=== PATIENT | female | born 1955 | race Caucasian/White ===

== ENCOUNTER → 2021-06-04 13:08 | Outpatient (CLI) | payer MEDICARE, OTHER, SELFPAY ==
--- NOTE | 2021-06-04 | DI.MRI.S_ITS ---
PROCEDURE: MR KNEE RT WO CON INDICATIONS: Loose body in knee, right knee TECHNIQUE: Noncontrast sagittal PD fast spin echo and T2 fast spin echo with fat saturation, sagittal 3-D FLASH with fat saturation; coronal T1 spin echo and PD fast spin echo with fat saturation, and axial PD fast spin echo with fat saturation through the knee. COMPARISON: None. FINDINGS: Image quality: Excellent. Menisci: Deficiency of the lateral meniscus, which may reflect intrasubstance degeneration. Normal morphology of the medial meniscus. The meniscal root ligaments appear intact. Cruciate ligaments: The anterior and posterior cruciate ligaments appear intact. Medial structures: The medial collateral ligament appears intact. Visualized portions of the pes anserinus tendons appear normal. Small amount of bursal fluid with intra-articular bodies, measuring up to 3 mm. T2 hyperintense signal within the medial gastrocnemius musculotendinous junction, compatible with injury/strain. Lateral structures: The lateral collateral ligament, long and short heads of the biceps femoris tendon appear intact. The popliteus tendon appears normal. Iliotibial band appears normal. Anterior structures: The quadriceps and patellar tendons appear intact. Patellar alignment is normal. No femoral trochlear dysplasia or ventral trochlear prominence. No edema in the infrapatellar fat pad. Bones and cartilage: T2 hyperintense signal in the lateral femoral condyle and tibial plateau, compatible with subchondral contusion. Signal heterogeneity and thinning of the tricompartment hyaline cartilage, most prominent in the lateral compartment. T2 hyperintense signal within the medial patella at the retinaculum attachment. Small focus of subchondral edema in the medial aspect of the patellar apex. Joint space: Small joint effusion with intra-articular bodies, measuring up to 1.4 cm. No Sargent's cyst. Normal appearing synovial plicae are incidentally noted. IMPRESSION: 1. Pes anserine bursal fluid with intra-articular body. 2. Small suprapatellar joint effusion with intra-articular bodies. 3. Osteochondral injury of the lateral compartment as detailed above. 4. Medial gastrocnemius strain/injury. Dictated by: Andres Niño M.D. on 06/04/2021 at 13:54 Approved by: Andres Niño M.D. on 06/04/2021 at 14:05
== END ==
PROVIDERS: Referring Provider Orthopaedic Surgery; Visit Provider Orthopaedic Surgery
DX: S76.811A Strain of other specified muscles, fascia and tendons at thigh level, right thigh, initial encounter (principal); M23.41 Loose body in knee, right knee; M25.461 Effusion, right knee
CPT/HCPCS: 73721

== ENCOUNTER 2023-01-18 13:47 | Day surgery (SDC) | payer MEDICARE, OTHER, SELFPAY ==
--- NOTE | 2023-01-18 | PATH_ITS ---
[facility] Accession Number: [id number] No. of containers..02 Tissue . 01 Material submitted: . PART A: duodenum - DUODENUM PART B: stomach - ANTRUM . 01 Diagnosis: A-DUODENUM, BIOPSY: - SMALL BOWEL MUCOSA WITH PRESERVED VILLOUS ARCHITECTURE, NEGATIVE FOR HISTOLOGIC EVIDENCE OF CELIAC DISEASE. - NEGATIVE FOR DYSPLASIA OR MALIGNANCY. --- B- STOMACH, ANTRUM, BIOPSY: - ANTRAL GASTRIC MUCOSA WITH MILD FOCAL CHRONIC GASTRITIS. - NO H. PYLORI LIKE ORGANISMS IDENTIFIED (ON THE H/E-STAINED SECTIONS). - NEGATIVE FOR INTESTINAL METAPLASIA, DYSPLASIA OR MALIGNANCY. TXN 01/21/2023 1548 Local . 01 Electronically signed: . Tawdavi Herrera MD, Pathologist NPI- [id number] . 01 Gross description: . Part A: DUODENUM: Received in formalin are 3 fragment(s) of de anda, soft tissue measuring 0.1 x 0.1 x 0.1 cm to 0.3 x 0.3 x 0.2 cm submitted entirely in 1 cassette(s) Part B: ANTRUM: Received in formalin is 1 fragment(s) of de anda, soft tissue measuring 0.3 x 0.3 x 0.2 cm submitted entirely in 1 cassette(s) /ANAND 01/19/2023 2332 Local . 01 Pathologist provided ICD-10: R63.4, R19.4 . 01 CPT . 735704, [id number] Specimen Comment: A courtesy copy of this report has been sent to [phone] Performed at: 01 [facility] [address] [place] [address] [address] [facility], [place], [place] [id number] MD Bijan Narayanan MD Phone: [phone]
[2023-01-18 14:04] VITALS: BP 116/76; PULSE 90; RESP 16; TEMP 36.2; O2SAT 100; BMI 26.2
--- NOTE | 2023-01-18 14:14 | PM.HP.1 ---
History of Present Illness History of Present Illness Date Patient Seen: 01/18/23 Time Patient Seen: 14:15 Chief complaint: EGD/Colonoscopy Narrative: I reviewed my recent office note from January 12. No significant changes. Review of Systems Review of Systems ROS: Yes All systems reviewed with the patient and are negative except as otherwise documented Exam Const General: cooperative [facility] Head: normal to inspection Eyes General: appearance normal, both eyes and all related structures Neck Neck: normal visual inspection Chest Chest: normal inspection of the chest Resp Effort & Inspection: normal respiratory effort Cardio Rate: regular rate GI Inspection: normal to inspection Skin General: no rashes or lesions noted Neuro General: patient alert and patient awake Extrem General: normal to inspection and no pedal edema Psych Appearance: grossly normal Assessment & Plan Assessment & Plan narrative: 67-year-old female with diminished appetite, weight loss, and change in bowel habit. Diagnostic EGD and colonoscopy are pursued today. There was no evidence of celiac disease. No evidence of a thyroid anomaly. CBC and CMP were unremarkable.
--- NOTE | 2023-01-18 14:16 | PM.PREOP ---
Pre-operative Note Interval Note History & Physical reviewed/Exam performed by Physician: Yes Changes to H&P: No ASA Class (for procedural sedation): II
[2023-01-18] MEDS: LACTATED RINGERS 1,000 ML 42 ML IV (14:24)
--- NOTE | 2023-01-18 14:59 | PM.OP.EC ---
Operative Date/Time/Diagnoses Date of procedure: 01/18/23 Time of procedure: 14:59 Pre-op diagnosis: Decreased appetite, weight loss, and change in bowel habits/caliber Post-op diagnosis: same Procedure & Clinicians Study performed: EGD with biopsies and colonoscopy Same procedure as scheduled: Yes Indications: Decreased appetite, weight loss, and change in bowel habits/caliber Surgeon: Jose Ramon Young Procedure Notes SCOAP/Timeout: Done Procedure in detail: After the risks and benefits were explained, written and verbal informed consent was obtained. The patient was brought into the procedure room and placed into the left lateral decubitus position. Please see anesthesia notes for sedation details. The scope was introduced into the mouth through the bite block and advanced under direct visualization to the 2nd portion of the duodenum. The scope was slowly withdrawn carefully examining the mucosa for any defects or lesions. Retroflexed views were accomplished in the stomach. The stomach was decompressed, the scope was then removed from the patient who tolerated the procedure well. The patient was then turned around. A digital rectal examination was accomplished. No significant pathology was appreciated. The scope was introduced into the rectum and advanced to the cecum as identified by the appendiceal orifice and ileocecal valve. The terminal ileum was interrogated. The scope was then slowly withdrawn to carefully examine the mucosa for any defects or lesions. Multiple direct views were made through the dentate line for exclusion of pathology. The colon was decompressed. The scope was then removed from the patient who tolerated the procedure well. Pediatric colonoscope Bowel prep adequate Scope withdrawal time: 7 minutes Sedation minutes: 23 Complications: none Impression: 1. Duodenum: No significant pathology was appreciated from the bulb through to the 2nd portion. Random D2 biopsies were taken for exclusion of celiac. 2. Stomach: No outlet obstruction. No masses. No ulcers. Retroflexed views of the LES were unremarkable. There was mild erythema and some scattered nodular erosions in the antrum. A couple of these areas were targeted for histopathology and exclusion of H pylori infection. 3. Esophagus: The squamocolumnar junction correlated with the top of the gastric folds. GEJ was at 36 cm from the incisors. No stricturing. No acute erosive esophagitis. No significant esophageal pathology throughout. 4. Terminal ileum: This was visually normal. 5. Colon: There was no evidence of any mass lesion throughout. No significant polyps identified throughout. The patient had scattered small diverticula throughout the left colon. Grade 1 nonthrombosed, nonbleeding, internal hemorrhoids were noted. Endoscopic diagnosis 1. Mild erosive gastropathy 2. Otherwise visually unremarkable EGD 3. Diverticulosis 4. Grade 1 hemorrhoids 5. Otherwise visually unremarkable colonoscopy and terminal ileoscopy Post-procedure Plan for aftercare: 1. Await histopathology. 2. Titrate fiber to the desired stool consistency and frequency. 3. Repeat colonoscopy 10 years. 4. As there were no obvious findings to account for clinical symptoms, if histopathology is bland then further abdominal imaging can/should be considered. Disposition: PACU
[2023-01-18 15:02] VITALS: BP 90/55; PULSE 75; RESP 16; TEMP 36.4; O2SAT 95
[2023-01-18 15:08] VITALS: BP 94/60; PULSE 78; RESP 20; TEMP 36.4; O2SAT 97
[2023-01-18 15:17] VITALS: BP 104/66; PULSE 77; RESP 19; TEMP 36.4; O2SAT 97
== END 2023-01-18 15:33 | disposition home or self-care (01) ==
PROVIDERS: PCP Family Medicine; Referring Provider Internal Medicine Gastroenterology; Visit Provider Internal Medicine Gastroenterology
PROC: 0DJ08ZZ Inspection of Upper Intestinal Tract, Via Natural or Artificial Opening Endoscopic (ICD-10-PCS; CPT 43235; principal; 2023-01-18 14:30)
PROC: 0DJD8ZZ Inspection of Lower Intestinal Tract, Via Natural or Artificial Opening Endoscopic (ICD-10-PCS; CPT 45378; 2023-01-18 14:30)
DX: R19.4 Change in bowel habit (principal); R63.4 Abnormal weight loss; K31.9 Disease of stomach and duodenum, unspecified; K64.0 First degree hemorrhoids; K57.30 Diverticulosis of large intestine without perforation or abscess without bleeding
CPT/HCPCS: 45378; 43235; J2704

== ENCOUNTER → 2023-03-10 09:56 | Outpatient (CLI) | payer MEDICARE, OTHER, SELFPAY ==
--- NOTE | 2023-03-10 09:58 | DI.CT.S_ITS ---
PROCEDURE: CT ABDOMEN PELVIS W CON INDICATIONS: DECREASED APPETITE/CHANGE IN BOWEL HABIT/WT LOSS TECHNIQUE: After the administration of oral and intravenous contrast, axial sections were acquired from the lung bases to the pubic symphysis. Coronal and sagittal reformats were performed. For radiation dose reduction, the following was used: automated exposure control, adjustment of mA and/or kV according to patient size. COMPARISON: None. FINDINGS: Image quality: Excellent. Lung bases: Unremarkable. Heart: No significant findings. ABDOMEN: Liver: Unremarkable. Gallbladder: Unremarkable. Biliary ducts: Unremarkable. Pancreas: Unremarkable. Spleen: Unremarkable. Adrenal Glands: Unremarkable. Kidneys and Ureters: Unremarkable. Stomach and Bowel: Stomach, small bowel loops, and colon are unremarkable. Peritoneum: No abnormal intraperitoneal fluid. No free air. Ventral Wall: No hernia. Abdominal Nodes: No retroperitoneal or mesenteric adenopathy by size criteria. Vessels: Aorta and inferior vena cava are normal in size. PELVIS: Pelvic Organs: Unremarkable. Bladder: Unremarkable. Pelvic Nodes: No enlarged lymph nodes. Miscellaneous: No inguinal hernias are seen. Bones: No acute or suspicious osseous abnormality. Dextroconvex lumbar scoliosis. Moderate degenerative change of the lumbar spine. IMPRESSION: No acute process in the abdomen or pelvis. Dictated by: Radha Roach M.D. on 03/10/2023 at 20:49 Approved by: Radha Roach M.D. on 03/10/2023 at 20:53
[2023-03-10 10:23] LABS: Estimated Glomerular Filt Rate > 60 mL/min (>60)
== END ==
PROVIDERS: Radiology Diagnostic Radiology; PCP Family Medicine; Referring Provider Internal Medicine Gastroenterology; Visit Provider Internal Medicine Gastroenterology
DX: R19.4 Change in bowel habit (principal); R63.0 Anorexia; R63.4 Abnormal weight loss
CPT/HCPCS: 36415; 74177; 82565; Q9967